=== PATIENT | female | born 1995 | race Caucasian/White ===

== ENCOUNTER 2016-04-07 13:24 | Emergency (ER) | payer OTHER ==
[~2016-04-07 13:24] MED LIST: AMPHETAMINE SAL20 MG PO; DEXTROAMP-AMPHE20 MG PO; DOLOPHINE10 MG PO; HYDROXYZINE PAM50 MG PO; ISENTRESS400 MG PO; LAMOTRIGINE100 MG PO; LATUDA20 M1 PO; NEXPLANON68 M1; PRENATAL PLUS I1 TA1 PO; TRUVADA 200 MG-1 TAB PO; ZOFRAN ODT4 MG PO; ZOFRAN ODT4 MG SL
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
--- NOTE | 2016-04-07 16:49 | ED PSYCHIATRIC COMPLAINT ---
History of Present Illness General Chief Complaint: Psychiatric Related Complaint Stated Complaint: PSYCH EVAL Source: patient, old records, EMS Exam Limitations: no limitations Vital Signs & Intake/Output Vital Signs & Intake/Output Vital Signs Date Time Temp Pulse Resp B/P Pulse O2 O2 Flow FiO2 Ox Delivery Rate 04/07 1401 Room Air 04/07 1335 68 18 111/55 98 Room Air Allergies Coded Allergies: hydroxyzine (From VISTARIL) (RESTLESS LEGS 02/16/16) Reconcile Medications Dextroamphetamine/Amphetamine (Dextroamp-Amphetamin 20 MG Tab) 20 MG TABLET 0.5 TAB PO BID ADHD (Reported) Etonogestrel (Nexplanon) 68 MG IMPLANT CONTROL (Reported) Lurasidone HCl (Latuda) 20 MG TABLET 1 TAB PO DAILY MENTAL HEALTH (Reported) Triage Note: PT BIBA ON DMHAS PAPER FOR EVAL AFTER BEING D/C FROM [facility] THIS MORNING, AFTER AN O/D LAST NIGHT. PT DENIES SI OR HI AT THIS TIME Triage Nurses Notes Reviewed? yes Onset: Just prior to arrival Duration: hour(s):, better Timing: recent history Severity: moderate LMP (ages 10-50): unknown : No Patient currently breastfeeds: No HPI: Evening prior to admission patient overdosed on snorting heroin and received narcan x 2. She became aggressive and hostile to mom, mobile crisis called and patient placed on PEER. Patient denies fever chills nausea vomiting diarrhea abdominal pain chest pain shortness of breath dysuria rash headache bleeding suicidal ideation hallucination homicidal ideation. Past History Travel History Traveled to [place] past 21 day No Medical History Any Pertinent Medical History? 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 No Review of Systems Review of Systems Constitutional: Reports: no symptoms. EENTM: Reports: no symptoms. Respiratory: Reports: no symptoms. Cardiovascular: Reports: no symptoms. GI: Reports: no symptoms. Genitourinary: Reports: no symptoms. Musculoskeletal: Reports: no symptoms. Skin: Reports: no symptoms. Neurological/Psychological: Reports: no symptoms. Hematologic/Endocrine: Reports: no symptoms. Immunologic/Allergic: Reports: no symptoms. All Other Systems: Reviewed and Negative Physical Exam Physical Exam General Appearance: well developed/nourished, mild distress Head: atraumatic, normal appearance Eyes: Bilateral: PERRL, EOMI. Ears, Nose, Throat: normal pharynx, normal ENT inspection, hearing grossly normal Neck: normal inspection, supple Respiratory: normal breath sounds Cardiovascular: regular rate/rhythm Gastrointestinal: normal bowel sounds, soft, non-tender, no organomegaly Extremities: normal range of motion Neurological/Psychiatric: no motor/sensory deficits, awake, alert, normal mood/ affect, tire setter II-XII nml as tested Appearance/Memory/Insight: appropriate insight, denies illness Behavoir/Eye Contact/Speech: cooperative, normal speech Thoughts/Hallucinations: no apparent hallucination Skin: intact, normal color, warm/dry SAD PERSONS Done? patient not suicidal Progress Differential Diagnosis: drug intoxication, drug overdose, drug withdrawal, electrolyte abnormality, hypoglycemia Plan of Care: Orders Procedure Date/time Status ED CRISIS PSYCH CONSULT 04/07 1404 Active URINE DRUG SCREEN FOR ER ONLY 04/07 1337 Complete Laboratory Tests 04/07/16 1338: Urine Opiates Screen 228.00, Methadone Screen < 40, Barbiturate Screen < 60, Ur Phencyclidine Scrn < 6.00, Amphetamines Screen 104, U Benzodiazepines Scrn < 85, Urine Cocaine Screen < 50, Urine Cannabis Screen < 5.00 Departure Departure Time of Disposition: 1736 Disposition: HOME OR SELF CARE Condition: Stable Clinical Impression Primary Impression: Bipolar disorder Qualifiers: Current episode severity: unspecified Secondary Impressions: Opiate abuse, episodic Referrals: PATIENT HAS NO PRIMARY CARE DR (PCP/Family) Additional Instructions: Follow up with the recommendations of the channel worker Departure Forms: Customer Survey General Discharge Information
[2016-04-07 18:09] VITALS: BP 117/60
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
== END 2016-04-07 18:11 ==
LOC: ERH 13:24
DX: F31.9 Bipolar disorder, unspecified (principal); F11.10 Opioid abuse, uncomplicated
CPT/HCPCS: 80307; G0463

== ENCOUNTER 2016-08-19 18:44 | Emergency (ER) | payer OTHER ==
[~2016-08-19] VITALS: Ht 160 cm; Wt 59.0 kg
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
[2016-08-19 20:59] LABS: ABSOLUTE BASOPHIL COUNT 0 /CUMM (0.0-0.2); ABSOLUTE EOSINOPHIL COUNT 0.3 /CUMM (0.0-0.7); ABSOLUTE GRANULOCYTE CT 4.1 /CUMM (1.4-6.5); ABSOLUTE LYMPH COUNT 1.9 /CUMM (1.2-3.4); ABSOLUTE MONOCYTE COUNT 0.5 /CUMM (0.10-0.60); BASOPHIL % 0.6 % (0.0-2.0); EOSINOPHIL % 3.8 % (0-5); GRANULOCYTE % 60.5 % (42.2-75.2); HEMATOCRIT 36.3 % (37-47); MEAN CORPUSCULAR HGB 27.5 PG (27.0-31.0); MEAN CORPUSCULAR HGB CONC 32.8 G/DL (33.0-37.0); MEAN CORPUSCULAR VOLUME 84.1 FL (81.0-99.0); MEAN PLATELET VOLUME 10.9 FL (7.4-10.4); PLATELET COUNT 154 /CUMM (130-400); RBC DISTRIBUTION WIDTH 14.5 % (11.5-14.5); RED BLOOD CELL CT 4.31 /CUMM (4.20-5.40); WHITE BLOOD CELL COUNT 6.7 /CUMM (4.8-10.8)
[2016-08-19] MEDS ORDERED: METHADONE10 MG/1 M1 PO (21:38)
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
[2016-08-20 11:43] VITALS: BP 110/60
== END 2016-08-20 11:51 ==
LOC: ERH 18:44
PROVIDERS: Emergency Medicine
DX: F31.9 Bipolar disorder, unspecified (principal)
CPT/HCPCS: 80307; 81003; 87491; 87591; G0463; G0480

== ENCOUNTER 2016-09-18 21:00 | Observation (INO) | payer OTHER ==
[~2016-09-18] VITALS: Ht 160 cm; Wt 59.0 kg
[~2016-09-18 21:00] MED LIST changes: +METHADONE10 MG/1 M1 PO
--- NOTE | 2016-09-18 21:03 | NUR ---
PT BIBA ON POLICE PAPER. PT CALLED FROM SIDE OF THE ROAD STATING THAT SHE IS OVERWHELMED AND IS VERY EMOTIONAL. PT IS SUPPOSED TO HAVE METHADONE DOSE TODAY BUT CANNOT GET IT UNTIL TOMORROW. PT ARRIVES CALM AND COOPERATIVE. DENIES SI/HI. SECURITY AT BEDSIDE FOR WANDING.
--- NOTE | 2016-09-18 21:12 | ED GENERAL ADULT ---
See Addendum History of Present Illness General Chief Complaint: Psychiatric Related Complaint Stated Complaint: DEPRESSION Source: patient Exam Limitations: no limitations Vital Signs & Intake/Output Vital Signs & Intake/Output Vital Signs Date Time Temp Pulse Resp B/P B/P Pulse O2 O2 Flow FiO2 Mean Ox Delivery Rate 09/19 512 97.3 77 18 116/62 99 Room Air 09/18 2129 98.0 79 18 111/66 98 Room Air ED Intake and Output 09/19 0000 09/18 1200 Intake Total Output Total Balance Patient 130 lb Weight Weight Estimated Measurement Method Allergies Coded Allergies: hydroxyzine (From VISTARIL) (RESTLESS LEGS 02/16/16) Reconcile Medications Etonogestrel (Nexplanon) 68 MG IMPLANT CONTROL (Reported) Lurasidone HCl (Latuda) 20 MG TABLET 1 TAB PO DAILY MENTAL HEALTH (Reported) Methadone HCl 10 MG/ML SYRINGE 70 MG PO DAILY MENTAL HEALTH (Reported) Trazodone HCl 50 MG TABLET 1-2 TAB PO QPM SLEEP (Reported) Triage Note: PT BIBA ON POLICE PAPER. PT CALLED FROM SIDE OF THE ROAD STATING THAT SHE IS OVERWHELMED AND IS VERY EMOTIONAL. PT IS SUPPOSED TO HAVE METHADONE DOSE TODAY BUT CANNOT GET IT UNTIL TOMORROW. PT ARRIVES CALM AND COOPERATIVE. DENIES SI/HI. SECURITY AT BEDSIDE FOR WANDING. Triage Nurses Notes Reviewed? yes Onset: Abrupt Duration: hour(s): Timing: no prior history : No Patient currently breastfeeds: No HPI: 09/18/16 9:42 PM 21-year-old female presents to the emergency department for depression. According to the patient she was on the street crying. She says she's been out of her methadone for the past 2 days. She says the parents don't understand her. She denies suicidal ideation. The onset of the symptoms have been abrupt, the duration has been several days, the severity is significant as her symptoms required her to come to the emergency department for care. She has past medical history of opiate dependency and bipolar disorder. (APRIL CHEN DO) Past History Travel History Traveled to [place] past 21 day No Medical History Any Pertinent Medical History? see below for history Neurological: NONE EENT: NONE Cardiovascular: NONE Respiratory: NONE Gastrointestinal: NONE Hepatic: NONE Renal: NONE Musculoskeletal: NONE Psychiatric: bipolar disease, ADHD PTSD DEPRESSSION Endocrine: NONE Blood Disorders: NONE Cancer(s): NONE RECORDS MANAGEMENT MANAGER/Reproductive: NONE Surgical History Surgical History: non-contributory Psychosocial History Who do you live with Mother What is your primary language Kiswahili Tobacco Use: Refused to answer Family History Hx Contributory? No (APRIL CHEN DO) Review of Systems Review of Systems Constitutional: Reports: no symptoms. EENTM: Reports: no symptoms. Respiratory: Reports: no symptoms. Cardiovascular: Reports: no symptoms. GI: Reports: no symptoms. Genitourinary: Reports: no symptoms. Musculoskeletal: Reports: no symptoms. Skin: Reports: no symptoms. Neurological/Psychological: Reports: no symptoms. Hematologic/Endocrine: Reports: no symptoms. Immunologic/Allergic: Reports: no symptoms. All Other Systems: Reviewed and Negative (APRIL CHEN DO) Physical Exam Physical Exam General Appearance: alert, awake, anxious, mild distress Head: atraumatic, normal appearance Eyes: Bilateral: normal appearance, PERRL, EOMI. Ears, Nose, Throat: normal pharynx, normal ENT inspection Neck: normal inspection, supple Respiratory: normal breath sounds, chest non-tender Cardiovascular: regular rate/rhythm Peripheral Pulses: 4+ radial (R), 4+ radial (L) Gastrointestinal: soft, non-tender Back: normal inspection, normal range of motion Extremities: normal inspection, normal range of motion, no edema Neurologic/Psych: no motor/sensory deficits, awake, alert, oriented x 3 Skin: intact, normal color, warm/dry Core Measures ACS in differential dx? No CVA/TIA Diagnosis: No Severe Sepsis Present: No Septic Shock Present: No (APRIL CHEN DO) Progress Differential Diagnoses I considered the following diagnoses in my evaluation of the patient: [ Depression, suicidal ideation, opiate dependency] Plan of Care: Orders Procedure Date/time Status Continuous Observation Monitor 09/18 2157 Active URINE DRUG SCREEN FOR ER ONLY 09/18 2157 Active ETHANOL 09/18 2157 Complete COMPREHENSIVE METABOLIC PANEL 09/18 2157 Complete CBC WITHOUT DIFFERENTIAL 09/18 2157 Complete ED CRISIS PSYCH CONSULT 09/18 2157 Active Laboratory Tests 09/18/16 2225: Anion Gap 10, Estimated GFR > 60, BUN/Creatinine Ratio 28.8 H, Glucose 75, Calcium 9.1, Total Bilirubin 0.4, AST 68 H, ALT 117 H, Alkaline Phosphatase 63 , Total Protein 6.5, Albumin 4.0, Globulin 2.5, Albumin/Globulin Ratio 1.6, CBC w Diff NO MAN DIFF REQ, RBC 4.07 L, MCV 84.0, MCH 27.5, RDW 15.1 H, MPV 10.8 H, Gran % 49.3, Lymphocytes % 37.5, Monocytes % 9.8 H, Eosinophils % 2.9, Basophils % 0.5, Absolute Granulocytes 2.7, Absolute Lymphocytes 2.1, Absolute Monocytes 0.5, Absolute Eosinophils 0.2, Absolute Basophils 0, PUBS MCHC 32.7 L , Serum Alcohol < 10.0 Initial ED EKG: none (APRIL CHEN DO) Hand-Off Endorsed To: NOEMY OLSON,APRIL Burgess Endorsed Time: 0700 Pending: consult (HOSSEIN OLSON,SHOBHA Kirk) Departure Departure Disposition: STILL A PATIENT Condition: Stable Clinical Impression Primary Impression: Depression Referrals: PATIENT HAS NO PRIMARY CARE DR (PCP/Family) Departure Forms: Customer Survey General Discharge Information Comments 09/18/16 9:50 pm The patient was placed in a quiet room. She is on a police evaluation paper. She currently denies suicidal ideation. She does have a history of bipolar disorder and is on trazodone and Latuda. (APRIL CHEN DO) Critical Care Note Critical Care Note Critical Care Time: non-applicable (APRIL CHEN DO)
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
[2016-09-18] MEDS ORDERED: TRAZODONE HCL50 M1 PO (21:54)
[2016-09-18 22:33] LABS: ABSOLUTE BASOPHIL COUNT 0 /CUMM (0.0-0.2); ABSOLUTE EOSINOPHIL COUNT 0.2 /CUMM (0.0-0.7); ABSOLUTE GRANULOCYTE CT 2.7 /CUMM (1.4-6.5); ABSOLUTE LYMPH COUNT 2.1 /CUMM (1.2-3.4); ABSOLUTE MONOCYTE COUNT 0.5 /CUMM (0.10-0.60); BASOPHIL % 0.5 % (0.0-2.0); EOSINOPHIL % 2.9 % (0-5); GRANULOCYTE % 49.3 % (42.2-75.2); HEMATOCRIT 34.2 % (37-47); MEAN CORPUSCULAR HGB 27.5 PG (27.0-31.0); MEAN CORPUSCULAR HGB CONC 32.7 G/DL (33.0-37.0); MEAN PLATELET VOLUME 10.8 FL (7.4-10.4); PLATELET COUNT 147 /CUMM (130-400); RBC DISTRIBUTION WIDTH 15.1 % (11.5-14.5); RED BLOOD CELL CT 4.07 /CUMM (4.20-5.40); WHITE BLOOD CELL COUNT 5.5 /CUMM (4.8-10.8)
--- NOTE | 2016-09-18 23:11 | NUR ---
PT RESTING AT THIS TIME W. RR NOTED, OFFERING NO COMPLAINTS. SITTER IN ATTENDANCE.
--- NOTE | 2016-09-18 23:12 | NUR ---
PT MADE AWARE THAT URINE SAMPLE IS NEEDED. PT EDUCATED ON IMPORTANCE OF PROVIDING URINE SAMPLE. PT STATES SHE WILL INFORM STAFF WHEN SHE HAS TO GO
--- NOTE | 2016-09-19 01:44 | NUR ---
PT REMINDED OF NEED FOR URINE SAMPLE, PT CONTINUES TO BE UNABLE TO PROVIDE SAMPLE AT THIS TIME.
--- NOTE | 2016-09-19 03:02 | NUR ---
PT REMAINS ASLEEP AT THIS TIME W/RR NOTED. NAD. SITTER IN ATTENDANCE.
--- NOTE | 2016-09-19 05:11 | NUR ---
PATIENT AWAKE, REQUESTING TO SPEAK TO RN. THIS RN TO BEDSIDE. PATIENT TEARFUL STATING "I FEEL ALL SWEATY AND LIKE MY HEART IS RACING." CURRENT HR:77, AFEBRILE. PATIENT REQUESTING METHADONE, INFORMED PER PREVIOUS ESTABLISHED PLAN W/ MD WESLEY WAITING TO SPEAK W/ METHADONE CLINIC TO VERIFY DOSING PRIOR TO ORDERING METHADONE, CLINIC IS CLOSED. PATIENT REPORTS "THE CLINIC OPENS AT 5AM, CAN YO BRENDANY TO CALL THEM?" PATIENT REPORTS USES [facility] ON [facility] AND THAT SHE TAKES "70 MG."
--- NOTE | 2016-09-19 05:54 | NUR ---
PATIENT PROVIDED URINE SPECIMEN PER THIS RN REQUEST. TRIO OBTAINED AND SENT TO LAB. PATIENT THEN MEDICATED W/ METHADONE 70MG PER EMAR. TOLERATED WELL. PATIENT REMAINS CALM AND COOPERATIVE THOUGH TEARFUL. SITTER REMAINS W/ PATIENT.
--- NOTE | 2016-09-19 06:18 | NUR ---
URINE TRIO COLLECTED AND SENT
--- NOTE | 2016-09-19 07:04 | NUR ---
ASSUMED CARE OF PT WHO IS CURRENTLY SLEEPING. RR EVEN AND UNLABORED. SITTER REMAINS AT DOORWAY. PT IS WAITING FOR INITIAL CRISIS EVALUATION
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
--- NOTE | 2016-09-19 09:18 | NUR ---
PT AWAKE AND ALERT, PREVIOUSLY SPOKE WITH CRISIS. PT DENIES SI/HI AND STATES SHE WILL BE ABLE TO TAKE THE BUS TO HER METHADONE CLINIC TOMORROW. PT STATES SHE ATE SOME OF HER BREAKFAST. WILL SPEAK WITH CRISIS REGARDING PT DISPOSITION
--- NOTE | 2016-09-19 12:34 | NUR ---
PATIENT REFUSING 1200 GABAPENTIN. APPEARS DROWSY BUT STABLE. PLEASANT AND COOPERATIVE WITH STAFF AT THIS TIME. SITTER REMAINS OUTSIDE OF DOOR. PATIENT CONTINUES CONSTANT SAFETY OBSERVATION.
--- NOTE | 2016-09-19 15:15 | NUR ---
PT TALKING WITH FAMILY MEMBER AT THIS TIME.
--- NOTE | 2016-09-19 15:45 | NUR ---
PT C/O FEELING ANXIETY AND REQUESTING FOR GIVEN SOMETHING TO CALM DOWN. DR. SALGUERO NOTIFIED. ADMINISTERED NEURONTIN ORDERED.
--- NOTE | 2016-09-19 16:49 | NUR ---
RESTING COMFORTABLY READING MAGAZINE AT THIS TIME. SITTERS REMAIN AT THE DOOR.
--- NOTE | 2016-09-19 18:00 | NUR ---
PT COMFORTABLY SLEEPING AT THIS TIME.
--- NOTE | 2016-09-19 18:56 | NUR ---
AMBULATED TO BATHROOM TO VOID.
--- NOTE | 2016-09-19 19:06 | NUR ---
VLAD MARIANO Nurse Note by: RENUKA IGNACIO I agree with the ASSISTANT HEAD CASHIER findings/evaluation of this patient's condition. Entered by: RENUKA IGNACIO Date: 09/19/16 Time: 1905
--- NOTE | 2016-09-19 22:10 | NUR ---
PER CRISIS, PT TO BE REEVALUATED BY CRISIS IN AM. PT MEDICATED WITH NITGHT TIME 100 MG TRAZODONE PO ORDERED
--- NOTE | 2016-09-20 01:19 | NUR ---
PT ASLEEPING. REGULAR RESPIRATIONS NOTED. SITTER REMAINS IN ATTENDANCE
--- NOTE | 2016-09-20 02:42 | NUR ---
SOUND ASLEEP. NOTED REGULAR BREATHING PATTERNS.
--- NOTE | 2016-09-20 02:55 | NUR ---
VLAD MARIANO Nurse Note by: RENUKA IGNACIO I agree with the SECTION GANG WORKER findings/evaluation of this patient's condition. Entered by: RENUKA IGNACIO Date: 09/20/16 Time: 0250
--- NOTE | 2016-09-20 04:20 | NUR ---
PT CONTINUES TO SLEEP. SITTER REMAINS IN ATTENDANCE
--- NOTE | 2016-09-20 06:04 | NUR ---
PATIENT AWOKE FROM SLEEP, ALERT AND ORIENTED, CALM AND COOPERATIVE. PATIENT DENIES CURRENT COMPLAITS, AMBULATORY TO AND FROM BATHROOM W/ STABLE GAIT NOTED. SITTER REMAINS W/ PATIENT.
--- NOTE | 2016-09-20 06:32 | NUR ---
PATIENT MEDICATED WITH NEURONTIN PER EMAR. TOLERATED WELL. PATIENT INQUIRING REGARDING IF BEING MEDICATED W/ METHADONE THIS AM, REPORTS TAKES 70MG DAILY. MD CARTER AWARE.
[2016-09-20 08:04] VITALS: BP 99/50
--- NOTE | 2016-09-20 08:05 | NUR ---
PT AWOKEN FOR VITAL SIGNS. PT STATE SHE SLEPT "OK" LAST NIGHT, PT ATE 100% OF BREAKFAST TRAY. PT REQUESTING METHADONE. MEDICATED PER EMAR BY PAT RN WITH METHADONE. SITTER REMAINS PRESETNT.
--- NOTE | 2016-09-20 09:59 | NUR ---
PT DUE FOR LATUDA AT THIS TIME, PER PT SHE WOULD LIKE TO WAIT UNTIL SHE EATS HER LUNCH TO TAKE IT.
--- NOTE | 2016-09-20 10:20 | NUR ---
CRISIS AT BEDSIDE FOR EVAL AT THIS TIME
--- NOTE | 2016-09-20 10:51 | NUR ---
PER CRISIS, PT WILL BE CLEARED FOR D/C AT THIS TIME.
--- NOTE | 2016-09-20 10:54 | NUR ---
PT CLEARED FOR D/C AT THIS TIME. PT VERBZLIE D/C ISTRUCTIONS AND NEED TO F/U WITH CRISIS.
== END 2016-09-20 14:55 ==
LOC: ERH 21:00 → ERHI 09-19 12:17 → ERH 09-19 15:44 → ERHI 09-19 15:44 → ENRESERV 09-20 14:54 → ERHI 09-20 14:55 → CANBEDREQ 09-20 14:55
PROVIDERS: Emergency Medicine; ADMIT Emergency Medicine
DX: F32.9 Major depressive disorder, single episode, unspecified (principal); F31.9 Bipolar disorder, unspecified; F90.9 Attention-deficit hyperactivity disorder, unspecified type; F43.10 Post-traumatic stress disorder, unspecified
CPT/HCPCS: 6090; 80307; G0378; G0463; G0480

== ENCOUNTER 2017-03-17 14:54 | Emergency (ER) | payer OTHER ==
[~2017-03-17] VITALS: Ht 160 cm; Wt 59.0 kg
[~2017-03-17 14:54] MED LIST changes: +ALPRAZOLAM1 M2 PO; +BUPROPION XL150 MG PO; +TRAZODONE HCL50 M1 PO
[2017-03-17 16:04] LABS: ABSOLUTE BASOPHIL COUNT 0 /CUMM (0.0-0.2); ABSOLUTE EOSINOPHIL COUNT 0.5 /CUMM (0.0-0.7); ABSOLUTE GRANULOCYTE CT 6.2 /CUMM (1.4-6.5); ABSOLUTE LYMPH COUNT 2.6 /CUMM (1.2-3.4); ABSOLUTE MONOCYTE COUNT 0.7 /CUMM (0.10-0.60); BASOPHIL % 0.3 % (0.0-2.0); EOSINOPHIL % 4.7 % (0-5); GRANULOCYTE % 62.2 % (42.2-75.2); MEAN CORPUSCULAR HGB 28.4 PG (27.0-31.0); MEAN CORPUSCULAR HGB CONC 33.4 G/DL (33.0-37.0); MEAN CORPUSCULAR VOLUME 84.9 FL (81.0-99.0); MEAN PLATELET VOLUME 10.3 FL (7.4-10.4); PLATELET COUNT 208 /CUMM (130-400); RBC DISTRIBUTION WIDTH 13.4 % (11.5-14.5); RED BLOOD CELL CT 4.48 /CUMM (4.20-5.40)
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
--- NOTE | 2017-03-18 14:32 | ED PSYCH CRISIS CONSULTATION ---
Crisis Consult Basic Assessment Date of Consult: 03/18/17 Responsible Person/Accompanied By: self Insurance Authorization: Insurance #1: Insurance name: PURVI OLIVAS Phone number: Policy number: [id number] Group number: Authorization number: ED Provider: Patient's ED Provider: James Farfan Primary Care Physician: Patient's PCP: Patient Has No Primary Care Dr PCP's Phone Number: Current Psychiatrist: Solo Etienne APRN Chief Complaint: Psychiatric Related Complaint Patient's Quote: "Yesterday..see i had court today" Buti didn't have money to pay the fee" Present Illness: Patient is a 21 year old White female presenting in the ED on a PEER. Patient returned home yesterday (03/17/17) from being out with friends. Per mother, she was out partying and came home angry and it let to assaultive / combative behavior. PEER indicates that patient stated "I might as well get a gun and end my life". Patient has a diagnosis for Bipolar disorder and is currently prescribed Wellbutrin and Xanax by Solo Etienne APRN in [place]. She also attends the [facility] in [place] were she is prescribed Methadone. 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 Patient's utox was positive for Cannabis, Methadone, Benzodiazepams, and cocaine. Patient states she has a prescription for the Xanax and is prescribed the Methadone by [facility]. She reports that the cannabis is not "unhealthy" and the cocaine is in her system from the other night when she was really sleepy and tried to stay awake. Pt reports the incident that led her to the ED yesterday was an arguement that got serious with her mother and her mother called the police. Pt reports that she recently got an inheretance from her grandmother and since she doesn't have a bank account, her mother has the money an account for her. Patient reports she was supposed to have court today to pay a ticket/violation. She reports that she did not have the money to pay the fee as the money was in her mother's acct. She reports her mother refused to give her the money which caused the arguement and resulted in mom calling the police. Patient presented as calm and rational today. She denies SI/HI as well as AH/VH. Patient reports she made the statement about getting a gun out of anger. She has no desire to and is proud of herself for not replasing on heroin. Patient reports she goes to [facility] to get her Methadone but missed 1 dose as she didn't have a ride to [place]. She reports she has another appointment with Solo Etienne in a few months as he prescribes every 90 days. She reports she picks up her next Rx this week. She wants to speak with the presciber about getting off the Wellbutrin as she believes it makes her more angry. Crisis consulted with Dr. Goldberg who stated he will see the patient as she is on a PEER. Patient will likely be discharged to follow up with [facility] and Solo Etienne for substanec abuse and mental health treatment at the outpatient level. Patient's Address: [address] [place] [address] Other Phone Number: Who Do You Live With? Father Family/Informants Interviewed: spoke with mother- see collateral note Allergies - Coded Allergies: hydroxyzine (From [facility]) (RESTLESS LEGS 02/16/16) Current Medications - Scheduled Medications Alprazolam 1 MG TABLET 1 TAB PO BID ANXIETY #60 (Reported) Entered as Reported by Anna Thomas on 11/30/16 1522 Methadone HCl 10 MG/ML SYRINGE 70 MG PO DAILY MENTAL HEALTH (Reported) Entered as Reported by Anna Thomas on 08/19/16 2138 Last Taken: 03/15/17 Miscellaneous Medications Etonogestrel (Nexplanon) 68 MG IMPLANT CONTROL (Reported) Entered as Reported by Anna Thomas on 02/16/16 1654 Last Taken: At an unknown date and time Laboratory Results: Laboratory Tests 03/17/17 1840: Urine Opiates Screen < 100.00, Methadone Screen > 735 H, Barbiturate Screen 71, Ur Phencyclidine Scrn < 6.00, Amphetamines Screen < 100, U Benzodiazepines Scrn > 800 H, Urine Cocaine Screen > 1000 H, Urine Cannabis Screen 73.40 H, Urine Test NEGATIVE 03/17/17 1515: Anion Gap 11, Estimated GFR > 60, BUN/Creatinine Ratio 18.9, Glucose 105 H, Calcium 9.7, Total Bilirubin 0.6, AST 31, ALT 35, Alkaline Phosphatase 66, Total Protein 8.0, Albumin 4.9, Globulin 3.1, Albumin/Globulin Ratio 1.6, CBC w Diff NO MAN DIFF REQ, RBC 4.48, MCV 84.9, MCH 28.4, RDW 13.4, MPV 10.3, Gran % 62.2, Lymphocytes % 26.2, Monocytes % 6.6, Eosinophils % 4.7, Basophils % 0.3, Absolute Granulocytes 6.2, Absolute Lymphocytes 2.6, Absolute Monocytes 0.7 H, Absolute Eosinophils 0.5, Absolute Basophils 0, PUBS MCHC 33.4, Serum Alcohol < 10.0 Past History Past Medical History Neurological: NONE EENT: NONE Cardiovascular: NONE Respiratory: NONE Gastrointestinal: NONE Hepatic: NONE Renal: NONE Musculoskeletal: NONE Psychiatric: bipolar disease, substance abuse Endocrine: NONE Blood Disorders: NONE Cancer(s): NONE 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: 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 Past Surgical History Surgical History: non-contributory Psychosocial History Strengths/Capabilities: engaged in out pt tx, supportive concerned mother, employed at [employer] Physical Limitations (Interventions): none reported Psychiatric Treatment History Psych Treatment Psychiatric Treatment Yes Inpatient Treatment Yes Outpatient Treatment Yes Location of Treatment Octavia Etienne APRN; [facility]; [facility]; Reason for Treatment bipolar dx Dates of Treatment various Response to Treatment poor- does not remain in treatment for a long period of time with same provider Diagnosis by History: By History : Bipolar, Anxiety, ADHD, Depression, Impulse Control D/O, Bulima borderline personality d/d Substance Use/Abuse History Drug Use/Abuse 1 Substances Used/Abused Yes Substance Used/Abused Benzodiazepines First Use unk Last Used yesterday, 03/17/17 How much used/taken 1 tab How often two times per day For how long unk Route of use oral Drug Use/Abuse 2 Substances Used/Abused Yes Substance Used/Abused Cocaine First Use not reported Last Used 03/16/17 How much used/taken "a little bit to stay awake" How often reports first time For how long n/a Route of use nasal Drug Use/Abuse 3 Substances Used/Abused Yes Substance Used/Abused Marijuana First Use "a while ago" Last Used "why" it's not harmful How much used/taken unk How often unk For how long unk Route of use inhaled Drug Use/Abuse 4 Substances Used/Abused Yes Substance Used/Abused Other (list in comments) (methadone maintance [facility] found ) Substance Abuse Treatment Substance Abuse Treatment Past Substance Abuse [place] Yes Inpatient Treatment Yes Outpatient Treatment Yes Location of Treatment various- [facility] Reason for Treatment methadone maint. Dates of Treatment [facility]- 2014 + 2015; [facility]- current Response to Treatment poor- using other subtances in addition to methadone Current Mental Status Mental Status Orientation: Person, Place, Situation Affect: WNL Speech: WNL Neuro-vegetative: WNL Appearance Appearance- Dress/Hygiene: Patient presented in hospital attire. Hygiene appeared adequate. Behaviors Thought Process: WNL Thought Content: WNL Memory: WNL Insight: Poor SI/HI Risk Assessment Past Suicidal Ideation/Attempts Yes Current Suicidal Ideation/Att No Past Homicidal Ideation/Att: No Current Homicidal Ideation/Attempts No Risk Factors: age (under 24/over 65), SA/MH hospitalized, substance abuse, poor impulse control Lethality Ratin PTSD Checklist PTSD Done? patient declined ED Management Sitter: Yes Restraints: No DSM5/PS Stressors/Medical Prob Diagnosis' (DSM 5, Stressors, Medical): F31.9 Unspecified Bipolar and Related Disorder F12.20 Cannabis Use Disorder F14.10 Cocaine Use Disorder R/O Sedatives, Hypnotics or anxiolytics Use Disorder Z65.3 Problems related to other legal circumstances Current GAF: 53 Departure Disposition Psych Medical Clearance Date: 03/18/17 Medically Cleared at: 1358 Time Started: 1358 Time Ended: 1418 Psychiatrist Consulted: Solo Etienne APRN Date Disposition Established: 03/18/17 Time Disposition Established: 1530 Plan for Disposition - Modality: Outpatient Facility: [facility] and Solo Etienne APRN Rationale for Disposition: Pt denies SI/ HI and AH/VH. Patient is in treatment at [facility] for Methadone Maintanence and sees Solo Etienne APRN for medication management. Referrals Patient Has No Primary Care Dr (PCP/Family)
[2017-03-18 14:48] VITALS: BP 98/56
--- NOTE | 2017-03-18 14:49 | ED PSY CRISIS COLLATERAL NOTE ---
Collateral Note Collateral Note Family/Inform/Florinda Contacts: Crisis called Solo Etienne APRN to verify he is the prescriber for the pt to obtain collateral information. Called [facility], Solo' former office and was given the following intake office in [place] to reach Solo ). Unable to speak with anyone as it was an automated system. Crisis spoke with mother (Vandana Rooney- [phone]). Mother does not believe that patient wants to kill herself and does not have access to guns. They do not have guns in the home. Mother is concerned that patient gets Xanax and goes through #60 in 4 days. She is unsure if she is abusing it or selling it. Mother was informed that psychiatrist will see pt and she would get a phone call regarding the final disposition.
--- NOTE | 2017-03-18 21:02 | ED PSYCHIATRIST/APRN CONSULT ---
Psychiatrist/COLLIERY CLERK ED Consult Assessment and Plan: Case discussed with the Specification Consultant (Maryellen), patient's electronic reviewed Patient interviewed Findings: For details on the circumstances leading to her presentation to ED, please see the Crisis Diagnostic assessment Mental State: The patient was interviewed in private room in front of Crisis area. She was alert, oriented to time, place and person. She seemed in good spirits. She denied feeling depressed. She reported that New Year's celebration did not go well, he cell phone , she was out of money, had a big argument with her mother about money Pt. denied having any thoughts of suicide or violence or homicide Patient was calm and cooperative, no agitation Patient denied felling hopeless or worthless, she denied wishing or thinking of suicide There were no delusions, she was coherent/no thought disorder, and she denied hallucinations Assessment: 21-year-old single white female brought on PEER after mother called police following an argument they had Recommendations: After discussing options with the patient I recommend: I don't recommend inpatient psych admission Pt. may be discharged at the will of the ED physician Continue treatment with [facility] (Solo Marcial)
== END 2017-03-18 16:01 ==
LOC: ERH 14:54
PROVIDERS: Physician Assistant Medical
DX: R45.851 Suicidal ideations (principal); F31.9 Bipolar disorder, unspecified
CPT/HCPCS: 80307; 81025; G0463; G0480